=== PATIENT | female | born 1975 | race Caucasian/White ===

== ENCOUNTER → 2020-02-25 10:47 | Outpatient (CLI) | payer OTHER, SELFPAY ==
--- NOTE | ~2020-02-25 | US_ITS ---
EXAMINATION: US transvaginal EXAM DATE: 02/25/2020 11:09 INDICATION: Menorrhagia. TECHNIQUE: Pelvic transvaginal sonogram was performed. There are multiple grayscale and Doppler imag es available for interpretation. There is no prior study for comparison. FINDINGS: Uterus measures 9.8 x 4.7 x 5.9 cm, and is morphologically normal. Endometrial stripe juan c sures 13 mm, within normal limits. There is no free pelvic fluid. Right adnexa: The ovary measures 2.0 x 1.5 x 1.8 cm and is morphologically normal. Ovarian vascular f low confirmed. Left adnexa: The ovary measures 3.0 x 1.9 x 2.4 cm and is morphologically normal. Ovarian vascular fl ow confirmed. IMPRESSION: 1. Unremarkable pelvic ultrasound exam. Reviewed, dictated and finalized at location A.
== END ==
PROVIDERS: Visit Provider Nurse Practitioner
DX: N92.0 Excessive and frequent menstruation with regular cycle (principal)
CPT/HCPCS: 76830